=== PATIENT | male | born 1940 | race African-American/Black ===

== ENCOUNTER 2023-10-06 07:24 | Outpatient (CLI) | payer BC, SELFPAY ==
--- NOTE | 2023-10-10 12:08 | P.NEURO_ITS ---
Neurology EEG Report General Information Date of Study: 10/06/23 TEST EEG DIAGNOSIS potential seizure-like activity CONDITION OF RECORDING [facility] EEG NUMBER [id number] CLINICAL HISTORY the patient gives history of spacing out spells EEG DESCRIPTION During wakefulness the background activity consists of posterior dominant alpha rhythm at 9 hertz with an amplitude of 20-40 microvolts which appears moderately formed and reactive to eye opening. Anteriorly low amplitude mixed frequency activity was seen. Hyperventilation not performed. Patient progressed to stage I and 2 sleep during which vertex waves and sleep spindles were seen. Photic stimulation was performed during which no significant abnormal background changes were seen. No episode of driving response was noted. IMPRESSION This is a normal EEG obtained during awake and sleep states.
== END 2023-10-06 07:25 | disposition home or self-care (01) ==
PROVIDERS: Visit Provider Internal Medicine
DX: R41.82 Altered mental status, unspecified (principal)
CPT/HCPCS: 95816